=== PATIENT | female | born 1945 | race Caucasian/White ===

== ENCOUNTER 2021-04-25 12:45 | Inpatient (IN) | payer OTHER, SELFPAY ==
[~2021-04-25] VITALS: Ht 165.1 cm; Wt 68.5 kg
--- NOTE | 2021-04-25 12:45 | NUR ---
Placed in room 6 . Placed on monitoring manager, blood pressure machine and pulse oximeter. To gown for exam. Side rails up. Report given to ALTA Freedman.
[2021-04-25 12:50] VITALS: BP_SYST 99
--- NOTE | 2021-04-25 12:55 | NUR ---
BIB MEDICS FROM HOME FOR SYNCOPE, COVID-19 OUTBREAK IN THE HOME
--- NOTE | 2021-04-25 13:00 | NUR ---
RECEIVED AND IN ROOM, PT CALM, ALERT, COMMUNICATES CLEARLY IN FUL COMPLETE SENTECES, SKIN WARM AND DRY. NO DISTRESS.
[2021-04-25] MEDS ORDERED: NACL 0.9% 1,000 ML IV ONE (13:15)
--- NOTE | 2021-04-25 13:26 | NUR ---
LABS, CXR COMPLETED, TOLERATED WELL
[2021-04-25 13:34] LABS: BASOPHILS % (AUTO) 0.3 % (0.0-2.0); EOSINOPHILS # (AUTO) 0.1 K/uL (0.0-0.4); EOSINOPHILS % (AUTO) 0.9 % (0.0-4.0); HEMATOCRIT 41.7 % (36-48); HEMOGLOBIN 13.8 g/dL (12.0-16.0); LYMPHOCYTES # (AUTO) 1.4 K/uL (1.0-5.5); MEAN CORPUSCULAR HEMOGLOBIN 28 pg (27-31); MEAN CORPUSCULAR HGB CONC 33 % (32-36); MEAN CORPUSCULAR VOLUME 85 fL (79.0-98.0); MONOCYTES # (AUTO) 0.6 K/uL (0.0-1.0); MONOCYTES % (AUTO) 8.8 % (1.7-9.3); NEUTROPHILS # (AUTO) 4.4 K/uL (1.8-7.7); PLATELET COUNT (AUTO) 141 K/uL (130-430); RED BLOOD CELL COUNT(AUTO) 4.93 MIL/uL (4.2-6.2); RED CELL DISTRIBUTION WIDTH 14.7 % (9.0-15.0); WHITE BLOOD COUNT (AUTO) 6.5 K/uL (4.8-10.8)
[2021-04-25 13:46] LABS: ANION GAP 8 (5-15); CALCIUM 9.5 mg/dL (8.4-11.0); CHLORIDE 100 mmol/L (98-107); CREATININE 0.83 mg/dL (0.55-1.30); GLUCOSE 201 mg/dL (70-99); POTASSIUM 3.7 mmol/L (3.5-5.1); SODIUM SERUM 134 mmol/L (136-145); UREA NITROGEN, BLOOD 13 mg/dL (8-21)
[2021-04-25 13:52] LABS: ALANINE AMINOTRANSFERASE 51 U/L (12-78); ALBUMIN 3.5 g/dL (3.4-4.8); ASPARTATE AMINOTRANSFERASE 37 U/L (10-37); TOTAL BILIRUBIN 0.4 mg/dL (0.0-1.0)
--- NOTE | 2021-04-25 15:05 | NUR ---
ADMIT ORDERS RECEIVED FOR TELE
--- NOTE | 2021-04-25 15:20 | NUR ---
SITTING UP EATING MEAL
--- NOTE | 2021-04-25 17:26 | NUR ---
UPDATE TO FAMILY, NO CONCERNS, REQUEST FOR MED LIST, FAX COMING BY PHARMACY
--- NOTE | 2021-04-25 17:43 | NUR ---
UP AMBULATING STEADY, NO DYSPNEA, SKIN WARM AND DRY. PT DENIES CP/SOB
[2021-04-25] MEDS ORDERED: GLIP10TA11 PO (18:53)
[2021-04-25] MEDS ORDERED: XALEYE OP (18:53)
[2021-04-25] MEDS ORDERED: METO25TA6 PO (18:53)
[2021-04-25] MEDS ORDERED: SITA100T11 PO (18:53)
[2021-04-25] MEDS ORDERED: CLOP75TA32 PO (18:53)
[2021-04-25] MEDS ORDERED: GLU500 PO (18:53)
[2021-04-25] MEDS ORDERED: IRBE300T40 PO (18:53)
[2021-04-25] MEDS ORDERED: EZET1TAB22 PO (18:53)
[2021-04-25] MEDS ORDERED: LINA145C PO (18:53)
--- NOTE | 2021-04-25 19:03 | NUR ---
MED REC COMPLETED
--- NOTE | 2021-04-25 19:12 | NUR ---
Received report from ALTA Freedman and continue care of patient.
--- NOTE | 2021-04-25 20:42 | NUR ---
Patient called family to inform about admission and needs her belonging and special food.
--- NOTE | 2021-04-25 21:01 | NUR ---
Patient will be admitted to care of Dr. Arriaga. Admitted to TELE unit. Will go to room 126B. Belongings list completed. Complete and up to date summary report printed. SBAR report to be given at bedside with opportunity for questions.
[2021-04-25 21:03] VITALS: BP_SYST 134
--- NOTE | 2021-04-25 21:10 | NUR ---
Patient arrived to [facility], Patient refused to stay with another patient. Patient was crying and state " I want to go home now, I will sign to be out of here."
--- NOTE | 2021-04-25 21:20 | NUR ---
Patient does not wish to proceed with medical care recommended by Dr. Arriaga. Patient given information related to possible complications, up to and including , which could occur as a result of leaving hospital at this time. Patient verbalizes understanding of risks involved leaving against medical advice. Patient has signed AMA form.
--- NOTE | 2021-04-25 21:33 | NUR ---
Patient BIB by [facility]fael to ER, removed IV line and Patient called family for transportation and waited in the TENT (COVID TENT outside ER)
--- NOTE | 2021-04-26 04:56 | NUR ---
TELE nurse came to ER and reported, did not inform Dr. Mann and Dr. Arriaga about patient signed AMA.
--- NOTE | 2021-04-26 06:55 | NUR ---
Called Dr. Mann and reported , patient signed AMA and left hospital.
== END 2021-04-25 21:30 | disposition left against medical advice (07) | DRG 179 ==
LOC: SED 12:45 → STU 14:50 → EDBD 14:50 → STU 21:03
PROVIDERS: ADMIT Internal Medicine Hospice and Palliative Medicine; ATTEND Internal Medicine Hospice and Palliative Medicine
DX: U07.1 COVID-19 (principal); I25.10 Atherosclerotic heart disease of native coronary artery without angina pectoris; R55 Syncope and collapse
CPT/HCPCS: 36415; 71045; 80053; 83880; 84484; 85025; 93005; 99285; G0378